=== PATIENT | female | born 1960 | race Two or more races ===

== ENCOUNTER 2021-05-31 02:17 | Emergency (ER) | payer BC ==
[~2021-05-31] VITALS: Ht 157.5 cm; Wt 63.5 kg
[2021-05-31] MEDS ORDERED: ENALAPRIL MALEA10 MG (02:27)
== END 2021-05-31 15:07 | disposition home or self-care (01) ==
LOC: ER 02:17
DX: R07.9 Chest pain, unspecified (principal); R25.0 Abnormal head movements; I10 Essential (primary) hypertension